=== PATIENT | female | born 1945 | race Caucasian/White ===

== ENCOUNTER 2017-07-19 19:07 | Emergency (ER) | payer BC, OTHER ==
[2017-07-19] MEDS ORDERED: ADENOSINE 3 MG/ML DISP.SYRIN IV ONE ×3 (19:31→20:09)
[2017-07-19 19:47] LABS: Hematocrit 34.1 % (37.0-47.0); Hemoglobin 11.2 gm/dL (12.5-16.0); Mean Cell Volume 96.3 fl (78-100); Mean Corpuscular Hemoglobin 31.6 pg (27-31); Mean Corpuscular Hgb Conc 32.8 g/dl (32-36); Mean Platelet Volume 12.1 fl (6.0-9.5); Platelet Count 168 K/mm3 (150-450); Red Blood Count 3.54 M/mm3 (4.2-5.4); Red Cell Distribution Width 14.6 % (11.5-14.0); White Blood Count 12.1 K/mm3 (4.0-10.5)
[2017-07-19] MEDS ORDERED: MIDAZOLAM HCL/PF 5 MG/ML VIAL ONE (19:48)
[2017-07-19 19:51] LABS: Total Cells Counted 100
[2017-07-19] MEDS ORDERED: MIDAZOLAM HCL/PF 5 MG/ML VIAL IV ONE (19:52)
[2017-07-19] MEDS ORDERED: DILTIAZEM HCL 5 MG/ML VIAL IV ONE (20:07)
[2017-07-19] MEDS ORDERED: DILTIAZEM HCL 125 MG in DEXTROSE 5 % IN WATER 100 ML IV PRN ×2 (20:08)
[2017-07-19 20:09] LABS: Albumin * 2.9 gm/dl (3.4-5.0); Anion Gap 16.8 mmol/L (6.8-13.8); BUN/Creatinine Ratio 15.5 (9.0-21.6); Bilirubin, Total 0.9 mg/dL (0.0-1.1); Ca. Corrected For Albumin 8.9 mg/dL (8.4-10.2); Calcium * 8.3 mg/dL (7.9-10.9); Potassium 3.8 mmol/L (3.4-4.6); TSH * 0.595 uIU/mL (0.358-3.74); Total Protein 6.8 gm/dL (6.2-8.2)
[2017-07-19 20:11] LABS: Troponin I 0.17 ng/ml (0.00-0.10)
[2017-07-19 20:26] LABS: Lymphocyte 6 % (20-51); Monocyte 8 % (0-9); Neutrophil 86 % (42-75); Neutrophil # 10.4 K/mm3 (1.3-6.0)
[2017-07-19 20:27] LABS: Platelet Estimate Normal (NORMAL); RBC Morphology Normal (NORMAL)
[2017-07-19 20:28] LABS: Macrocytosis 1+
[2017-07-19 20:29] VITALS: BP 100/52
--- NOTE | 2017-07-19 20:39 | ERNOTE ---
Chest Pain/Cardiac HPI Date of Service: 07/19/17 Chief Complaint: Palpitations Time Seen by Provider: 07/19/17 19:29 Source: patient, family Exam Limitations: no limitations Immunizations: IMMUNIZATION HX Immunizations Up to Date Yes History of Influenza Vaccine Yes Hx Pneumococcal Vaccination No Allergies/Adverse Reactions: Allergies No Known Allergies Allergy (Verified 07/29/15 07:15) Home Medications: HOME MEDICATIONS Adalimumab [Humira] 40 mg SQ Q14D 07/28/15 [Last Taken Unknown] Calcium/Magnesium/Vit D3 [Calcium 500 mg Tablet] 2 each PO BID 07/28/15 [Last Taken Unknown] Cholecalciferol (Vitamin D3) [Vitamin D] 1,000 unit PO DAILY 07/28/15 [Last Taken Unknown] Cyanocobalamin (Vitamin B-12) [Vitamin B-12] 5,000 mcg SL DAILY 07/28/15 [Last Taken Unknown] Ferrous Sulfate [Iron] 325 mg PO DAILY 07/28/15 [Last Taken Unknown] Levothyroxine Sodium [Synthroid] 75 mcg PO DAILY 07/28/15 [Last Taken Unknown] Lisinopril [Zestril] 2.5 mg PO DAILY 07/28/15 [Last Taken Unknown] Lovastatin 40 mg PO HS 07/28/15 [Last Taken Unknown] Methotrexate Sodium [Methotrexate] 8 tab PO Q7D 07/28/15 [Last Taken Unknown] HYDROcodone/ACETAMINOPHEN [Hydrocodon-Acetaminoph 7.5-325] 2 each PO Q4H PRN # 60 tablet 07/29/15 [Last Taken Unknown] oxyCODONE HCL/ACETAMINOPHEN [Percocet 5 MG/325 MG] 2 tab PO Q4H PRN #60 tablet 07/29/15 [Last Taken Unknown] Narrative: 71 yo WF with onset of palpitations at about noon today. Sat in her recliner and palpitations were intermittent. Re-occurred and she noted chest pressure as well. Came to ED and complained of weakness, continued palpitations (heart racing), chest pressure, and diaphoresis. Initial HR on monitor was 200 and EKG appeared to be SVT. Spontaneously slowed to SR at 100+ but tachy returned. Adenosine 6 mg given with no change followed by additional 12 mg. Again slowed to SR. After short period return to SVT intermittently. Another 12 mg adenosine did not affect her rate. Cardioversion with 75 joules converted. Initial EKG with rate > [address] depression. Last EKG after cardioversion showed return of ST segments. But again SVT returned with rate 205. This time BP dropped to 80/60. Bolus NS and will try cardiozem. Waiting for return call from trucker Dr. Marquez in [place]. Cardiozem slowed to SR at 90/min with BP 90/54. Chest Pain Radiation: no radiation Review of Systems - Review of Systems Constitutional: Present: no symptoms reported ENT: Present: no symptoms reported Respiratory: Present: no symptoms reported Gastrointestinal/Abdominal: Present: no symptoms reported Musculoskeletal: Present: no symptoms reported, other - rhematoid arthritis Neurological: Present: no symptoms reported - Patient's Past Medical History Patient History - Medical: Diabetes Type 2, Hypothyroidism, Renal Disease, Rheumatoid Arthritis, Other Patient History - Cardiac/Respiratory: Hypertension Patient History - Cancer: No Hx of Cancer Patient History - Surgical Procedures: Appendectomy, Cardiac stent, Gastric Bypass, Tubal Ligation Patient History - Other: None - Social History Living Situations: spouse Abuse History: No History of abuse Psych History: No pertinent hx Smoking Status: Former smoker Have you smoked in the past 12 months: No Do you dip or chew tobacco: No Alcohol Use: none Drug Use: none - Immunizations Immunizations Up to Date: Yes Hx Pneumococcal Vaccination: No History of Influenza Vaccine: Yes Physical Exam - Physical Exam General Appearance: Present: wd/wn, alert, mild distress, anxious Head Exam: Present: normal inspection, no evidence of injury Eye Exam: PERRL: bilateral, EOMI: bilateral Ears, Nose, Throat: Present: normal ENT inspection Neck: Present: normal inspection, nontender, other - JVD at 45 degrees Respiratory: Present: no respiratory distress, normal breath sounds Cardiovascular/Chest: Present: tachycardia Peripheral Pulses: N=norm/S=strong/W=weak/B=bound/A=absent: Femoral (R): Weak, Femoral (L): Weak Gastrointestinal/Abdominal: Present: nontender, soft Extremity Exam: Present: normal inspection, non-tender, no edema Neurological Exam: Present: alert, oriented, no motor/sensory deficits, flat cutter II- XII nml as tested Skin Exam: Present: normal color, warm/dry, diaphoresis ED Progress - Date and Time Seen: Date and Time: 07/19/17 20:18 See HPI On cardiozem rate controlled at 80-90 /min. SR and BP up to [address] 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 He agreed with transfer but need ED MD to return our call to accept. - Results and Orders Patient's Lab Results:: I have reviewed the patient's lab results. - Vital Signs Patient's Vital Signs:: I have reviewed the patient's vital signs. Vital Signs: Vital Signs 07/19/17 19:15 Temperature 37.2 C Pulse Rate 202 H Respiratory 20 Rate Blood Pressure 101/67 O2 Sat by Pulse 99 Oximetry - EKG EKG read: Reviewed by me - X-Ray X-Ray #1 X-Ray: chest Interpretation: Interp. by me - No acute changes - Progress/Reassessment Chief Complaint: Chest Pain Progress:: Improved - Transfer of Care Expected Disposition: Transfer Plan - Plan Plan: Transfer to [place] ED via ground. No flights due to weather. Departure Clinical Impression: SVT (supraventricular tachycardia) - Departure Disposition: [facility] Condition: Stable
== END 2017-07-19 20:50 | disposition short-term general hospital (02) ==
LOC: ER 19:07
DX: I47.1 Supraventricular tachycardia (principal); Z87.891 Personal history of nicotine dependence